=== PATIENT | male | born 1965 | race American Indian/Alaskan Native ===

== ENCOUNTER 2022-03-22 09:47 | Inpatient (IN) ==
--- NOTE | 2022-03-22 10:30 | Emergency Department Note ---
History of Present Illness General Chief complaint: Dehydration Stated complaint: REF BY DR, DEHYDRATION Time Seen by Provider: 03/22/22 10:06 History of Present Illness Provider Complaint: + nausea, + vomiting and + diarrhea Onset (ago): day(s) 4 Description of Vomiting: no bilious, no blood-streaked or no coffee grounds Description of Diarrhea: no tarry or no bloody (bright red) Associated Abdominal Pain: No Severity: moderate Maximum Pain Intensity: 7 Context: + other (history of HIV) Associated symptoms: no myalgias, no chest pain, no cough, no fever/chills, no shortness of breath, no syncope, no weakness, no fecal incontinence, no tenesmus or no anxiety Home Medications Medication Instructions Recorded Confirmed Type psyllium [Metamucil] PO DAILY 02/06/19 03/14/22 History bictegravir 50 mg-emtricitabine 1 tab PO DAILY #30 tabs 06/14/19 03/22/22 Rx 200 mg-tenofovir alafenam 25 mg tablet aspirin 81 mg chewable tablet 81 mg PO DAILY #90 tabs 07/04/19 03/22/22 Rx medical marijuana inhalation PRN Pain 09/02/21 03/14/22 History carvedilol 25 mg tablet 25 mg PO BID #180 tabs 09/14/21 03/22/22 Rx rosuvastatin 5 mg tablet 5 mg PO DAILY #90 tabs 09/14/21 03/22/22 Rx Powered Wheelchair #1 ea 12/17/21 03/14/22 Rx dicyclomine 10 mg capsule 10 mg PO TID #90 caps 12/22/21 03/22/22 Rx alirocumab 75 mg/mL subcutaneous 75 mg subcut Q14D #2 mL 03/08/22 03/22/22 Rx pen injector (Praluent Pen) cholecalciferol (vitamin D3) 50 50 mcg PO DAILY #90 caps 03/08/22 03/22/22 Rx mcg (2,000 unit) capsule icosapent ethyl 1 gram capsule 2 g PO BID #360 caps 03/08/22 03/22/22 Rx (Vascepa) sacubitril 49 mg-valsartan 51 mg 1 tab PO BID #180 tabs 03/14/22 03/22/22 Rx tablet (Entresto) Allergies Allergy/AdvReac Type Severity Reaction Status Date / Time No Known Drug Allergies Allergy Verified 03/14/22 13:03 Past Med/Surg History Medical History Behavioral and psychological symptoms of dementia Cardiac tamponade Chronic HFrEF (heart failure with reduced ejection fraction) CKD (chronic kidney disease) stage 3, GFR 30-59 ml/min Heart valve disease HIV disease Diagnosed Apr 06, 1984. 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 Surgical History History of bilateral hip replacements History of bladder surgery History of kidney surgery History of placement of ear tubes x3 History of sinus surgery x2 History of surgery "fluid drained from lungs and heart" S/P cataract surgery S/P hip replacement Family History Father Hypertension Diabetes Cancer Cardiac disorder Stroke Mother Hypertension Diabetes Cancer Cardiac disorder Myocardial infarction Lung cancer smoker Stroke Asthma Sister Hypertension Diabetes Asthma Brother Hypertension Alcoholism Grandmother (Maternal) Myocardial infarction Grandfather (Maternal) Myocardial infarction Aunt Myocardial infarction Uncle Myocardial infarction Family/Other Allergies per new patient form- "all" Heart disease per new patient form-"all" Other No family history of adverse response to anesthesia No family history of bleeding disorder Denies family history of Ovarian cancer Prostate cancer Breast cancer Colorectal cancer Social History Smoking Status: Never smoker Hx Alcohol Use: No Hx Substance Use: Yes (per ENT new patient form- denies) Preferred Language: Serbian Visual Impairment: No Limitations Hearing Ability: Use of Hearing Aid marital status: Current Living Situation: Family current occupational status: retired Feels Safe at Home: Yes Childhood Exposure to Second-Hand Smoke: Yes caffeine: Yes (Soda and tea) Dental Care, Regularly: No Physical Activity Frequency: Does not Exercise Seatbelt Use: always Do you think of yourself as: bisexual Review of Systems A total of 10 systems reviewed and were otherwise negative Physical Exam Vital Signs: Vital Signs - 24 hr 03/22/22 10:00 03/22/22 10:32 03/22/22 11:06 Temperature 36.9 C Temperature Source Temporal Artery Sc an Pulse Rate 123 H 102 H 91 H Pulse Rate [Finger ] Pulse Rate from Sp O2 Sensor 104 H Respiratory Rate 20 23 18 Respiratory Effort / Characteristics Non-Labored Sponta neous Respiratory Depth Normal Blood Pressure 89/53 L 119/81 Blood Pressure [Ri ght Arm] Blood Pressure Asha n 65 93 Blood Pressure Asha n [Right Arm] Blood Pressure Pos ition Sitting Pulse Oximetry 98 99 98 Oxygen Delivery Me thod Room Air Room Air Sepsis Recent Feve r Within 48 Hours No Sepsis New/Unexpla ined Change in Men severino Status N/A Sepsis Action Take n by Nursing Physician Notified 03/22/22 11:06 03/22/22 11:30 Temperature Temperature Source Pulse Rate Pulse Rate [Finger ] 91 H 98 H Pulse Rate from Sp O2 Sensor Respiratory Rate 18 18 Respiratory Effort / Characteristics Respiratory Depth Blood Pressure Blood Pressure [Ri ght Arm] 119/81 138/94 Blood Pressure Asha n Blood Pressure Asha n [Right Arm] 93 108 Blood Pressure Pos ition Pulse Oximetry 98 96 Oxygen Delivery Me thod Room Air Room Air Sepsis Recent Feve r Within 48 Hours Sepsis New/Unexpla ined Change in Men severino Status Sepsis Action Take n by Nursing Physical Exam: Physical Exam GENERAL: He appears well-developed and well-nourished. He does not appear distressed. HENT: Exam performed. - Head: Normocephalic and atraumatic. - Right Ear: External ear normal. No mastoid tenderness. - Left Ear: External ear normal. No mastoid tenderness. - Mouth/Throat: The oropharynx is clear and moist. No trismus in the jaw. No dental abscesses or uvula swelling. No oropharyngeal exudate or tonsillar abscesses. EYES: Conjunctivae and EOM are normal. Pupils are equal, round, and reactive to light. Right eye exhibits no discharge. Left eye exhibits no discharge. No scleral icterus. NECK: Normal range of motion. Neck supple. No JVD present. No spinous process tenderness present. No carotid bruit present. No rigidity. No tracheal deviation and normal range of motion present. No Brudzinski's sign and no Kernig's sign noted. CV: Tachycardic rate, regular rhythm, normal heart sounds and intact distal pulses. There is no peripheral edema. Palpable radial pulses bue. PULM/CHEST: Effort normal and breath sounds normal. No respiratory distress. No stridor. He has no wheezes. He has no rales. - Chest Wall: He exhibits no tenderness. ABD: The abdomen is soft. Well-healed scar over patient's anterior abdominal wall. Bowel sounds are normal. He has no distension. No mass is present. There is no tenderness. There is no rebound, no guarding, no Alvarado's sign and no tenderness at McBurney's point. Rovsig negative. MUSC/SKEL: Normal range of motion. There is no peripheral edema, tenderness or deformity. LYMPH: No cervical adenopathy. NEURO: He has normal strength. No cranial nerve deficit or sensory deficit. Coordination and gait normal. GCS eye subscore is 4. GCS verbal subscore is 5. GCS motor subscore is 6. Cerebellar tests wnl. Course Course 100: The patient was evaluated in room C8. A complete history and physical exam was performed Cardiac monitoring: An order was placed for continuous cardiac monitoring. The monitor shows a rate of 110 with sinus tachycardia rhythm EMR reviewed. Echocardiogram from August 2021 shows ejection fraction of 50 to 55% mild concentric left ventricular hypertrophy no significant change from the echo done in September 2019. Patient has history of HIV. Patient's viral load was detectable in November 2021 however on March 14, 2022 the patient had an undetectable viral load. The patient's last CD4 count in November 2021 showed a CD4 count of 770. 1135: Vital signs improved with IV fluid administration. Labs show white blood cell count of 10.6. Patient's creatinine is 2.47. Patient does have a history of CKD. Patient's initial lactic acid 2.6. Procalcitonin elevated at 3.56. Urinalysis does appear infected. Stool cultures are still pending. Patient does states he has a history of multiple urinary tract infections and states that Cipro and Bactrim no longer help his urinary tract infections. Patient will be treated with Rocephin 1 g IV piggyback in the emergency department. Giv en the patient's history of HIV infection, multiple UTIs, lactic acidemia, and elevated procalcitonin level, the patient will be admitted to the [facility]ist team Dr. Yeboah will be notified. Administered Medications Discontinued Medications Sodium Chloride (Nss 1000ml) 1,000 mls @ 999 mls/hr IV .Q1H1M IGNACIO Stop: 03/22/22 12:15 Last Infusion: 10/25/22 12:40 Dose: 0 mls/hr Documented By: Admin: 03/22/22 11:47 Dose: 999 mls/hr Documented By: Infusion: 03/22/22 11:47 Dose: 999 mls/hr Documented By: Admin: 03/22/22 11:14 Dose: 999 mls/hr Documented By: QGV Sodium Chloride (Nss 1000ml) 500 mls @ 999 mls/hr IV .Q31M ONE Stop: 03/22/22 11:53 Last Admin: 03/22/22 12:40 Dose: 999 mls/hr Documented By: QGV Ceftriaxone Sodium (Rocephin) 1,000 mg in 50 mls @ 100 mls/hr IV NOW STA Stop: 03/22/22 12:02 Last Infusion: 03/22/22 12:40 Dose: 0 mls/hr Documented By: Admin: 03/22/22 11:57 Dose: 100 mls/hr Documented By: QGV Medical Decision Making Laboratory Data Result diagrams: 03/22/22 10:24 03/22/22 10:24 Lab Results 03/22/22 03/22/22 03/22/22 Range/Units 10:24 10:24 10:24 WBC 10.60 (4.8-10.8) K/ul RBC 5.07 (4.63-6.08) M/uL Hgb 17.4 (14.0-18.0) g/dl Hct 48.5 (40.1-51.0) % MCV 95.7 (80.0-100.0) fL MCH 34.3 H (25.0-34.0) pg MCHC 35.9 (32.0-36.0) g/dL RDW Std Deviation 49.1 H (36.4-46.3) fL RDW Coeff of Melba 14.2 (11.5-14.5) % Plt Count 216 (130-400) K/uL MPV 8.5 L (9.4-12.4) fL Immature Gran % (Auto) 0.8 % Neut % (Auto) 73.6 % Lymph % (Auto) 10.4 % [place] % (Auto) 12.7 % Eos % (Auto) 2.0 % Baso % (Auto) 0.5 % Neut # (Auto) 7.81 H (1.4-6.5) K/uL Lymph # (Auto) 1.10 L (1.2-3.4) K/uL [place] # (Auto) 1.35 H (0.24-0.82) K/uL Eos # (Auto) 0.21 (0-0.50) K/uL Baso # (Auto) 0.05 (0-0.2) K/uL Immature Gran # (Auto) 0.08 H (0.00-0.02) K/uL PT 10.5 (9.0-12.0) Seconds INR 1.0 (0.9-1.1) APTT 28.8 (21.0-31.0) Seconds PTT Ratio 1.0 Sodium 137 (136-145) mmol/L Potassium 3.7 (3.5-5.1) mmol/L Chloride 107 (98-107) mmol/L Carbon Dioxide 19 L (21-32) mmol/L Anion Gap 11 (3-11) BUN 23 (6-23) mg/dl Creatinine 2.47 H (0.6-1.4) mg/dl Est Cr Clr Drug Dosing 35.3 ml/min Est GFR ( Amer) 33.0 ml/min Est GFR (Non-Af Amer) 28.5 ml/min BUN/Creatinine Ratio 9.3 L (10-20) Glucose 129 H (70-99(Fasting)) mg/dl Lactate (0.4-2.0) mmol/L Calcium 9.6 (8.5-10.1) mg/dl Magnesium 1.9 (1.7-2.4) mg/dl Total Bilirubin 0.9 (0.2-1.0) mg/dl Direct Bilirubin 0.1 (0-0.2) mg/dl AST 21 (13-39) U/L ALT 33 (7-52) U/L Alkaline Phosphatase 146 H (34-104) U/L Troponin I High Sens 9.0 (0-20) pg/ml Total Protein 9.0 H (6.0-8.3) gm/dl Albumin 4.7 (3.4-5.0) gm/dl Lipase 27 (11-82) U/L Procalcitonin (0-0.5) ng/ml Urine Color Urine Appearance (Clear) Urine pH (4.5-7.5) Ur Specific [place] (1.000-1.030) Urine Protein (Negative) Urine Glucose (UA) (Negative) Urine Ketones (Negative) Urine Blood (Negative) Urine Nitrite (Negative) Urine Bilirubin (Negative) Urine Urobilinogen (Negative) Ur Leukocyte Esterase (Negative) Urine WBC (Auto) (0-5) /hpf Urine RBC (Auto) (0-4) /hpf U Hyaline Cast (Auto) (0-5) /lpf U Epithel Cells (Auto) (0-5) /lpf Urine Bacteria (Auto) (Negative) SARS-CoV-2 (PCR) (Negative) Influenza Type A (PCR) (Neg) Influenza Type B (PCR) (Neg) RSV (RT-PCR) (Neg) 03/22/22 03/22/22 03/22/22 Range/Units 10:24 10:29 10:42 WBC (4.8-10.8) K/ul RBC (4.63-6.08) M/uL Hgb (14.0-18.0) g/dl Hct (40.1-51.0) % MCV (80.0-100.0) fL MCH (25.0-34.0) pg MCHC (32.0-36.0) g/dL RDW Std Deviation (36.4-46.3) fL RDW Coeff of Melba (11.5-14.5) % Plt Count (130-400) K/uL MPV (9.4-12.4) fL Immature Gran % (Auto) % Neut % (Auto) % Lymph % (Auto) % [place] % (Auto) % Eos % (Auto) % Baso % (Auto) % Neut # (Auto) (1.4-6.5) K/uL Lymph # (Auto) (1.2-3.4) K/uL [place] # (Auto) (0.24-0.82) K/uL Eos # (Auto) (0-0.50) K/uL Baso # (Auto) (0-0.2) K/uL Immature Gran # (Auto) (0.00-0.02) K/uL PT (9.0-12.0) Seconds INR (0.9-1.1) APTT (21.0-31.0) Seconds PTT Ratio Sodium (136-145) mmol/L Potassium (3.5-5.1) mmol/L Chloride (98-107) mmol/L Carbon Dioxide (21-32) mmol/L Anion Gap (3-11) BUN (6-23) mg/dl Creatinine (0.6-1.4) mg/dl Est Cr Clr Drug Dosing ml/min Est GFR ( Amer) ml/min Est GFR (Non-Af Amer) ml/min BUN/Creatinine Ratio (10-20) Glucose (70-99(Fasting)) mg/dl Lactate 2.6 H* (0.4-2.0) mmol/L Calcium (8.5-10.1) mg/dl Magnesium (1.7-2.4) mg/dl Total Bilirubin (0.2-1.0) mg/dl Direct Bilirubin (0-0.2) mg/dl AST (13-39) U/L ALT (7-52) U/L Alkaline Phosphatase (34-104) U/L Troponin I High Sens (0-20) pg/ml Total Protein (6.0-8.3) gm/dl Albumin (3.4-5.0) gm/dl Lipase (11-82) U/L Procalcitonin 3.56 H (0-0.5) ng/ml Urine Color Urine Appearance (Clear) Urine pH (4.5-7.5) Ur Specific [place] (1.000-1.030) Urine Protein (Negative) Urine Glucose (UA) (Negative) Urine Ketones (Negative) Urine Blood (Negative) Urine Nitrite (Negative) Urine Bilirubin (Negative) Urine Urobilinogen (Negative) Ur Leukocyte Esterase (Negative) Urine WBC (Auto) (0-5) /hpf Urine RBC (Auto) (0-4) /hpf U Hyaline Cast (Auto) (0-5) /lpf U Epithel Cells (Auto) (0-5) /lpf Urine Bacteria (Auto) (Negative) SARS-CoV-2 (PCR) NEGATIVE (Negative) Influenza Type A (PCR) Negative (Neg) Influenza Type B (PCR) Negative (Neg) RSV (RT-PCR) Negative (Neg) 03/22/22 Range/Units 10:47 WBC (4.8-10.8) K/ul RBC (4.63-6.08) M/uL Hgb (14.0-18.0) g/dl Hct (40.1-51.0) % MCV (80.0-100.0) fL MCH (25.0-34.0) pg MCHC (32.0-36.0) g/dL RDW Std Deviation (36.4-46.3) fL RDW Coeff of Melba (11.5-14.5) % Plt Count (130-400) K/uL MPV (9.4-12.4) fL Immature Gran % (Auto) % Neut % (Auto) % Lymph % (Auto) % [place] % (Auto) % Eos % (Auto) % Baso % (Auto) % Neut # (Auto) (1.4-6.5) K/uL Lymph # (Auto) (1.2-3.4) K/uL [place] # (Auto) (0.24-0.82) K/uL Eos # (Auto) (0-0.50) K/uL Baso # (Auto) (0-0.2) K/uL Immature Gran # (Auto) (0.00-0.02) K/uL PT (9.0-12.0) Seconds INR (0.9-1.1) APTT (21.0-31.0) Seconds PTT Ratio Sodium (136-145) mmol/L Potassium (3.5-5.1) mmol/L Chloride (98-107) mmol/L Carbon Dioxide (21-32) mmol/L Anion Gap (3-11) BUN (6-23) mg/dl Creatinine (0.6-1.4) mg/dl Est Cr Clr Drug Dosing ml/min Est GFR ( Amer) ml/min Est GFR (Non-Af Amer) ml/min BUN/Creatinine Ratio (10-20) Glucose (70-99(Fasting)) mg/dl Lactate (0.4-2.0) mmol/L Calcium (8.5-10.1) mg/dl Magnesium (1.7-2.4) mg/dl Total Bilirubin (0.2-1.0) mg/dl Direct Bilirubin (0-0.2) mg/dl AST (13-39) U/L ALT (7-52) U/L Alkaline Phosphatase (34-104) U/L Troponin I High Sens (0-20) pg/ml Total Protein (6.0-8.3) gm/dl Albumin (3.4-5.0) gm/dl Lipase (11-82) U/L Procalcitonin (0-0.5) ng/ml Urine Color Yellow Urine Appearance Turbid A (Clear) Urine pH 6.5 (4.5-7.5) Ur Specific [place] 1.016 (1.000-1.030) Urine Protein 3+ H (Negative) Urine Glucose (UA) Negative (Negative) Urine Ketones Negative (Negative) Urine Blood 3+ H (Negative) Urine Nitrite Positive A (Negative) Urine Bilirubin Negative (Negative) Urine Urobilinogen Negative (Negative) Ur Leukocyte Esterase 2+ H (Negative) Urine WBC (Auto) >30 H (0-5) /hpf Urine RBC (Auto) 0-4 (0-4) /hpf U Hyaline Cast (Auto) 0 (0-5) /lpf U Epithel Cells (Auto) >30 H (0-5) /lpf Urine Bacteria (Auto) 4+ H (Negative) SARS-CoV-2 (PCR) (Negative) Influenza Type A (PCR) (Neg) Influenza Type B (PCR) (Neg) RSV (RT-PCR) (Neg) Imaging Data Radiologist's Impression: Chest X-Ray 03/22/22 10:06 XR chest 1V portable CLINICAL HISTORY: Sepsis. COMPARISON STUDY: No previous studies for comparison. FINDINGS: Lung volumes are normal. There is a 1.2 cm nodular density lateral to the left hilum. There is no pneumothorax or pleural effusion. Cardiac size is normal. Mediastinal contours are normal. There is no evidence for pulmonary edema. IMPRESSION: 1.2 cm nodular density lateral to left hilum. This likely represents a pulmonary vessel. However, a nonemergent chest CT is recommended to exclude a pulmonary nodule. ACT 112: Negative or not required by law. Electronically signed by: Joshua Fu M.D. 03/22/2022 10:41 AM ECG Data Indication: nausea Rate (beats per minute): 105 Rhythm: sinus tachycardia Findings: no ST depression, no ST elevation or no prolonged QT MDM Narrative 1006: The patient was evaluated in room C8. A complete history and physical exam was performed Cardiac monitoring: An order was placed for continuous cardiac monitoring. The monitor shows a rate of 110 with sinus tachycardia rhythm EMR reviewed. Echocardiogram from August 2021 shows ejection fraction of 50 to 55% mild concentric left ventricular hypertrophy no significant change from the echo done in September 2019. Patient has history of HIV. Patient's viral load was detectable in November 2021 however on March 14, 2022 the patient had an undetectable viral load. The patient's last CD4 count in November 2021 showed a CD4 count of 770. 1135: Vital signs improved with IV fluid administration. Labs show white blood cell count of 10.6. Patient's creatinine is 2.47. Patient does have a history of CKD. Patient's initial lactic acid 2.6. Procalcitonin elevated at 3.56. Urinalysis does appear infected. Stool cultures are still pending. Patient does states he has a history of multiple urinary tract infections and states that Cipro and Bactrim no longer help his urinary tract infections. Patient will be treated with Rocephin 1 g IV piggyback in the emergency department. Given the patient's history of HIV infection, multiple UTIs, lactic acidemia, and elevated procalcitonin level, the patient will be admitted to the [facility] hospitalist team Dr. Yeboah will be notified. Impression & Plan Sepsis, Acute UTI Discharge Plan Visit Data Chief Complaint: Dehydration Stated Complaint: REF BY , DEHYDRATION ED Provider: Tino Joiner Discharge Problem: Sepsis, Acute UTI Patient Disposition: Admitted As Inpatient Forms Stand Alone Forms: My [facility] Prescriptions Prescriptions: No Action kyauoevpo-ebpnsiqo-kiayqep ala 50-200-25 mg tablet 1 tab PO DAILY Qty: 30 5RF aspirin 81 mg tablet,chewable 81 mg PO DAILY Qty: 90 3RF carvedilol 25 mg tablet 25 mg PO BID Qty: 180 3RF Rx Instructions: must administer with a meal/food rosuvastatin 5 mg tablet 5 mg PO DAILY Qty: 90 3RF dicyclomine 10 mg capsule 10 mg PO TID Qty: 90 2RF Praluent Pen 75 mg/mL pen injector 75 mg SQ Q14D Qty: 2 11RF Rx Instructions: inject into abdomen, thigh, or upper arm (deltoid muscle); rotate sites icosapent ethyl [Vascepa] 1 gram capsule 2 g PO BID Qty: 360 3RF Entresto 49-51 mg tablet 1 tab PO BID Qty: 180 3RF cholecalciferol (vitamin D3) 50 mcg (2,000 unit) capsule 50 mcg PO DAILY Qty: 90 3RF medical marijuana inhalation PRN (Reason: Pain) (DME) Powered Wheelchair Misc See Rx Instructions .Route Qty: 1 0RF Rx Instructions: As directed psyllium PO DAILY Referrals Referrals: Ruth Butler MD [Primary Care Provider] - : Sepsis Qualifiers: Sepsis type: sepsis due to unspecified organism Sepsis acute organ dysfunction status: unspecified Qualified Code(s): A41.9 - Sepsis, unspecified organism
--- NOTE | 2022-03-22 10:42 | XRay Report ---
XR chest 1V portable CLINICAL HISTORY: Sepsis. COMPARISON STUDY: No previous studies for comparison. FINDINGS: Lung volumes are normal. There is a 1.2 cm nodular density lateral to the left hilum. There is no pneumothorax or pleural effusion. Cardiac size is normal. Mediastinal contours are normal. The re is no evidence for pulmonary edema. IMPRESSION: 1.2 cm nodular density lateral to left hilum. This likely represents a pulmonary vessel. However, a nonemergent chest CT is recommended to exclude a pulmonary nodule. ACT 112: Negative or not required by law. Electronically signed by: Joshua Fu M.D. 03/22/2022 10:41 AM
[2022-03-22 10:45] LABS: Basophils # (auto) 0.05 K/uL (0-0.2); Basophils % (auto) 0.5 %; Eosinophils # (auto) 0.21 K/uL (0-0.50); Hematocrit (blood only) 48.5 % (40.1-51.0); Hemoglobin 17.4 g/dl (14.0-18.0); Immature Granulocytes # (auto) 0.08 K/uL (0.00-0.02); Immature Granulocytes % (auto) 0.8 %; Lymphocytes % (auto) 10.4 %; Mean Corpuscular Hemoglobin 34.3 pg (25.0-34.0); Mean Corpuscular Hgb Conc 35.9 g/dL (32.0-36.0); Mean Corpuscular Volume 95.7 fL (80.0-100.0); Mean Platelet Volume 8.5 fL (9.4-12.4); Monocytes # (auto) 1.35 K/uL (0.24-0.82); Monocytes % (auto) 12.7 %; Neutrophils # (auto) 7.81 K/uL (1.4-6.5); Neutrophils % (auto) 73.6 %; Platelet Count 216 K/uL (130-400); RDW Coefficient of Variation 14.2 % (11.5-14.5); RDW Standard Deviation 49.1 fL (36.4-46.3); Red Blood Count 5.07 M/uL (4.63-6.08)
[2022-03-22 10:59] LABS: Partial Thromboplastin Time 28.8 Seconds (21.0-31.0); Prothrombin Time 10.5 Seconds (9.0-12.0)
[2022-03-22 11:12] LABS: Appearance Urine Turbid (Clear); Bacteria Urine Automated 4+ (Negative); Bilirubin Urine Negative (Negative); Blood Urine 3+ (Negative); Color Urine Yellow; Epithelial Cell Urine Auto >30 /lpf (0-5); Glucose Urine UA Negative (Negative); Ketones Urine Negative (Negative); Leukocyte Esterase Urine 2+ (Negative); Nitrite Urine Positive (Negative); Protein Urine 3+ (Negative); RBC Urine Automated 0-4 /hpf (0-4); Specific Gravity Urine 1.016 (1.000-1.030); Urobilinogen Urine Negative (Negative); WBC Urine Automated >30 /hpf (0-5); pH Urine 6.5 (4.5-7.5)
[2022-03-22 11:14] LABS: Albumin Level 4.7 gm/dl (3.4-5.0); BUN Creatinine Ratio 9.3 (10-20); Bilirubin Direct 0.1 mg/dl (0-0.2); Bilirubin,Total 0.9 mg/dl (0.2-1.0); Calcium 9.6 mg/dl (8.5-10.1); Creatinine Clr Calc Pharmacy 35.3 ml/min; Est GFR (Non-African American) 28.5 ml/min; Magnesium 1.9 mg/dl (1.7-2.4); Potassium 3.7 mmol/L (3.5-5.1)
[2022-03-22] MEDS: SODIUM CHLORIDE 0.9% 1000ML 1,000 ML IV SCH ×2 (11:14→11:47)
[2022-03-22 11:23] LABS: Cast Urine Automated 0 /lpf (0-5)
[2022-03-22] MEDS ORDERED: SODIUM CHLORIDE 0.9% 1000ML 500 ML IV ONE (11:23)
[2022-03-22] MEDS ORDERED: cefTRIAXone SODIUM 1,000 MG/50 ML BAG IV STA (11:33)
[2022-03-22 11:58] LABS: Influenza A virus by PCR Negative (Neg); Influenza B virus by PCR Negative (Neg); RSV by PCR Negative (Neg); SARS CoV2 RNA(COVID-19) InHosp NEGATIVE (Negative)
--- NOTE | 2022-03-22 12:04 | History & Physical Report ---
Date of Service March 22, 2022 Assessment & Plan (1) Nausea and vomiting: Plan: Patient presented with nausea vomiting inability to keep down medications. On intake he does have elevation of lactic acid and procalcitonin. He has an abnormal urinalysis with a history of urinary tract infections stool studies are pending. An infectious disease note from 2020 lists chronic diarrhea is one of his medical problems. In ER he was given antiemetics hydration antibiotics and ceftriaxone and cultures were obtained in the past as urinary infections including Klebsiella and E. coli which were fairly sensitive to antibiotics given the fact that he self caths through his neobladder he likely is at risk for a catheterization associated urinary tract infection Patient will be volume resuscitated and continue on ceftriaxone (2) HIV disease: Plan: Patient typically sees Dr. Velez for his HIV. 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 Velez (3) CKD (chronic kidney disease) stage 3, GFR 30-59 ml/min: Plan: Acute kidney injury with history of chronic kidney disease. Likely from prerenal ATN patient typically follows with Dr. Chavis his creatinine typically is around 2 we will do a ultrasound to determine if there is any hydronephrosis or changes to the structure of his kidneys, he currently has a mild acidosis however this could be from dehydration and lactic acidosis his anion gap is low though at 11 (4) Chronic HFrEF (heart failure with reduced ejection fraction): Plan: Has a history of cardiomyopathy most recent echocardiogram showed preserved ejection fraction patient is on carvedilol, Entresto rosuvastatin Additionally for his cholesterol and he is on alirocumab(Praluent) and icosapent (Vascepa) (5) Neurogenic bladder: Plan: Reportedly had a neobladder per notes from Dr. Landry in 2016, patient self straight caths 4 times a day and as needed Plan DVT prevention is heparin given his renal function he is a full code History of Present Illness Primary Care Provider: Ruth Butler MD 56-year-old male with a history of HIV on chronic therapy with recently intact CD4 counts who presents with 4 days prehospital nausea vomiting and diarrhea. No significant description of melena or hematochezia or coffee-ground emesis. Does have a history of chronic diarrhea in the past. Remains on Bentyl and Metamucil as offered by Dr. Vaz he denies ill contacts Emergency department he has evidence of endorgan distress with acute kidney injury elevated lactic acid elevated procalcitonin abnormal urine analysis pending stool evaluation. He was given volume resuscitation cautiously with his history of cardiomyopathy of the last ejection fraction showed preserved EF Allergies Allergy/AdvReac Type Severity Reaction Status Date / Time No Known Drug Allergies Allergy Verified 03/14/22 13:03 Home Medications Medication Instructions Recorded Confirmed Type psyllium [Metamucil] PO DAILY 02/06/19 03/14/22 History bictegravir 50 mg-emtricitabine 1 tab PO DAILY #30 tabs 06/14/19 03/22/22 Rx 200 mg-tenofovir alafenam 25 mg tablet aspirin 81 mg chewable tablet 81 mg PO DAILY #90 tabs 07/04/19 03/22/22 Rx medical marijuana inhalation PRN Pain 09/02/21 03/14/22 History carvedilol 25 mg tablet 25 mg PO BID #180 tabs 09/14/21 03/22/22 Rx rosuvastatin 5 mg tablet 5 mg PO DAILY #90 tabs 09/14/21 03/22/22 Rx Powered Wheelchair #1 ea 12/17/21 03/14/22 Rx dicyclomine 10 mg capsule 10 mg PO TID #90 caps 12/22/21 03/22/22 Rx alirocumab 75 mg/mL subcutaneous 75 mg subcut Q14D #2 mL 03/08/22 03/22/22 Rx pen injector (Praluent Pen) cholecalciferol (vitamin D3) 50 50 mcg PO DAILY #90 caps 03/08/22 03/22/22 Rx mcg (2,000 unit) capsule icosapent ethyl 1 gram capsule 2 g PO BID #360 caps 03/08/22 03/22/22 Rx (Vascepa) sacubitril 49 mg-valsartan 51 mg 1 tab PO BID #180 tabs 03/14/22 03/22/22 Rx tablet (Entresto) Past Med/Surg History Medical History Behavioral and psychological symptoms of dementia Cardiac tamponade Chronic HFrEF (heart failure with reduced ejection fraction) CKD (chronic kidney disease) stage 3, GFR 30-59 ml/min Heart valve disease HIV disease Diagnosed Apr 06, 1984. 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 Surgical History History of bilateral hip replacements History of bladder surgery History of kidney surgery History of placement of ear tubes x3 History of sinus surgery x2 History of surgery "fluid drained from lungs and heart" S/P cataract surgery S/P hip replacement Family History Father Hypertension Diabetes Cancer Cardiac disorder Stroke Mother Hypertension Diabetes Cancer Cardiac disorder Myocardial infarction Lung cancer smoker Stroke Asthma Sister Hypertension Diabetes Asthma Brother Hypertension Alcoholism Grandmother (Maternal) Myocardial infarction Grandfather (Maternal) Myocardial infarction Aunt Myocardial infarction Uncle Myocardial infarction Family/Other Allergies per new patient form- "all" Heart disease per new patient form-"all" Other No family history of adverse response to anesthesia No family history of bleeding disorder Denies family history of Ovarian cancer Prostate cancer Breast cancer Colorectal cancer Social History Smoking Status: Never smoker Hx Alcohol Use: No Hx Substance Use: Yes (per ENT new patient form- denies) Preferred Language: Kyrgyz Visual Impairment: No Limitations Hearing Ability: Use of Hearing Aid marital status: Current Living Situation: Family current occupational status: retired Feels Safe at Home: Yes Childhood Exposure to Second-Hand Smoke: Yes caffeine: Yes (Soda and tea) Dental Care, Regularly: No Physical Activity Frequency: Does not Exercise Seatbelt Use: always Do you think of yourself as: bisexual Review of Systems Review of Systems: Mild distress and fatigue no headache, no visual changes no speech or swallowing issues no chest pain, pressure or palpitations no shortness of breath, cough or wheezes no abdominal pain, presented with persistent nausea vomiting and diarrhea Is a neobladder typically self straight caths through his umbilicus has noticed no changes in his urine no focal joint pain or swelling no back pain, CVA tenderness or radicular pain no bruising, bleeding or rashes no focal signs of weakness or numbness or altered sensation no complaints of anxiety or depression.. Physical Exam Physical Exam: The patient appeared well nourished and normally developed. Vital signs as documented. Head exam is normocephalic atraumatic Neck is without JVD, thyromegaly, or carotid bruits. Lungs are clear to auscultation, no focal loss of breath sounds Cardiac exam, Rhythm is regular.. No murmurs, rubs or gallops. Abdominal exam reveals normal bowel sounds, soft non tender, no masses slightly distended and firm to touch Extremities are nonedematous and both pedal pulses are present Neurologic exam is alert and oriented, no focal loss of strength or sensation Skin is without bruises or rashes Psychologically is without concerns for anxiety or depression.. Results & Data Results & Data ([facility]) Vital Signs (Past 12 Hours) Vital Signs Temp Pulse Pulse Resp BP BP Pulse Ox 03/22/22 11:06 91 H 18 119/81 98 03/22/22 11:06 91 H 18 98 03/22/22 10:32 102 H 23 119/81 99 03/22/22 10:00 98.4 F 123 H 20 89/53 L 98 O2 Del Method 03/22/22 11:06 Room Air 03/22/22 11:06 Room Air 03/22/22 10:32 03/22/22 10:00 Room Air PG Care Time/CCT Total # of Minutes Spent Total Time Spent with Patient: Total time spent is greater than 50% in coordination of care (as documented) at patient's floor/unit and/or counseling patient: Coding Level of Care Code 37416 Initial Inpt Care Lvl 3 Diagnoses Nausea and vomiting R11.2 HIV disease B20 CKD (chronic kidney disease) stage 3, GFR 30-59 ml/min N18.30 Chronic HFrEF (heart failure with reduced ejection fraction) I50.22 Neurogenic bladder N31.9
[2022-03-22 13:06] LABS: Adenovirus F 40/41 PCR Not Detected (NotDetected); Astrovirus PCR Not Detected (NotDetected); Campylobacter PCR Not Detected (NotDetected); Clostridium diff Toxin A/B PCR Not Detected (NotDetected); Cryptosporidium PCR Not Detected (NotDetected); Cyclospora cayetanensis PCR Not Detected (NotDetected); Entamoeba histolytica PCR Not Detected (NotDetected); Enteroaggregative E.coli(EAEC) Not Detected (NotDetected); Enteropathogenic E.coli (EPEC) Not Detected (NotDetected); Enterotoxigenic E.coli (ETEC) Not Detected (NotDetected); Giardia lamblia PCR Not Detected (NotDetected); Norovirus GI/GII PCR DETECTED (NotDetected); Plesiomonas shigelloides PCR Not Detected (NotDetected); Rotavirus A PCR Not Detected (NotDetected); Salmonella PCR Not Detected (NotDetected); Shiga-like Toxin E.coli (STEC) Not Detected (NotDetected); Shigella/Enteroinvasive E.coli Not Detected (NotDetected); Vibrio cholerae PCR Not Detected (NotDetected); Vibrio species PCR Not Detected (NotDetected); Yersinia enterocolitica PCR Not Detected (NotDetected)
[2022-03-22 13:34] LABS: Sapovirus PCR Not Detected (NotDetected)
[2022-03-22] MEDS ORDERED: PROMETHAZINE HCL 12.5 MG in SODIUM CHLORIDE 0.9% 50 ML IV PRN (14:50)
[2022-03-22] MEDS ORDERED: NSS + 20MEQ KCL 20 MEQ/1,000 ML BAG IV SCH (14:50)
[2022-03-22] MEDS ORDERED: ALUMINUM/MAGNESIUM SUSP 30 ML UDC PO PRN (14:50)
[2022-03-22] MEDS: ONDANSETRON INJ 2 MG/ML 2 ML VIAL IV PRN ×2 (15:25→21:43)
[2022-03-22] MEDS: DICYCLOMINE HCL 10 MG CAP PO SCH ×2 (15:25→21:34)
--- NOTE | 2022-03-22 16:47 | Nephrology Consultation ---
Date of Consultation March 22, 2022 Assessment & Plan (1) Acute kidney injury: * LIT due to dehydration in the setting of ARB therapy * Continue 0.9 NS at 100 cc/hr * Monitor PRP * Hold Entresto only if kidney function fails to improve w/ hydration * Await renal US results (2) Chronic kidney disease with active medical management without dialysis, stage 3 (moderate): * CKD stage G3b/A3 (moderate impairment). Baseline Cr 1.8 w/ EGFR 40 cc/min. 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 UPCR ~ 0.9. 09/17 renal US revealed mild asymmetry suggestive of microvascular disease (3) HIV disease: * On antiviral therapy as per Dr. Velez. 03/19 HIV RNA PCR - negative (4) Neurogenic bladder: * Performs CIC * Await urine culture results (5) Norovirus: * Stool PCR + for norovirus * Continue supportive care History of Present Illness Reason for Consultation: LIT/CKD Attending Physician: Jose Simon MD History of Present Illness Mr. Adame is a 56 year old male who is seen at the request of Dr. Simon for evaluation of LIT/CKD. Medical records in the EMR were reviewed today and are summarized as follows: Mr. Adame moved to [facility] 01/16. His daughter is a biostatistics professor at [employer]. Mr. Adame has a complex medical history including HIV > 30 years (currently on Biktarvy, viral load undetectable. ID specialist Dr. Mariajose Velez), ASCVD, ICM, hypertriglyceridemia, chronic diarrhea, neurogenic bladder s/p creation or urostomy (ileal conduit), kidney stones, dementia, and SNHL.Mr. Adame has CKD stage G3b/A3 (moderate impairment). His baseline Cr has been 1.8 w/ EGFR 40 cc/min. Urine sediment has been difficult to interpret due to ileal conduit. UPCR has been ~ 0.9. 09/17 renal US revealed mild asymmetry suggestive of microvascular disease. Mr. Adame presented to [facility] EMD today w/ 4 day history of N/V/D. He denies melena or hematochezia. SBP 89 mm Hg, Cr 2.47, lactate 2.6, procalcitonin 3.56. He has been admitted to the hospitalist service for volume resuscitation and empiric antibiotic therapy Allergies Allergy/AdvReac Type Severity Reaction Status Date / Time No Known Drug Allergies Allergy Verified 03/14/22 13:03 Home Medications Medication Instructions Recorded Confirmed Type psyllium [Metamucil] PO DAILY 02/06/19 03/14/22 History bictegravir 50 mg-emtricitabine 1 tab PO DAILY #30 tabs 06/14/19 03/22/22 Rx 200 mg-tenofovir alafenam 25 mg tablet aspirin 81 mg chewable tablet 81 mg PO DAILY #90 tabs 07/04/19 03/22/22 Rx medical marijuana inhalation PRN Pain 09/02/21 03/14/22 History carvedilol 25 mg tablet 25 mg PO BID #180 tabs 09/14/21 03/22/22 Rx rosuvastatin 5 mg tablet 5 mg PO DAILY #90 tabs 09/14/21 03/22/22 Rx Powered Wheelchair #1 ea 12/17/21 03/14/22 Rx dicyclomine 10 mg capsule 10 mg PO TID #90 caps 12/22/21 03/22/22 Rx alirocumab 75 mg/mL subcutaneous 75 mg subcut Q14D #2 mL 03/08/22 03/22/22 Rx pen injector (Praluent Pen) cholecalciferol (vitamin D3) 50 50 mcg PO DAILY #90 caps 03/08/22 03/22/22 Rx mcg (2,000 unit) capsule icosapent ethyl 1 gram capsule 2 g PO BID #360 caps 03/08/22 03/22/22 Rx (Vascepa) sacubitril 49 mg-valsartan 51 mg 1 tab PO BID #180 tabs 03/14/22 03/22/22 Rx tablet (Entresto) Patient History Medical History (Updated 03/22/22 @ 16:40 by Grant Chavis MD) Behavioral and psychological symptoms of dementia Cardiac tamponade Chronic HFrEF (heart failure with reduced ejection fraction) Heart valve disease HIV disease Diagnosed Apr 06, 1984. 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 Surgical History History of bilateral hip replacements History of bladder surgery History of kidney surgery History of placement of ear tubes x3 History of sinus surgery x2 History of surgery "fluid drained from lungs and heart" S/P cataract surgery S/P hip replacement Family History Father Hypertension Diabetes Cancer Cardiac disorder Stroke Mother Hypertension Diabetes Cancer Cardiac disorder Myocardial infarction Lung cancer smoker Stroke Asthma Sister Hypertension Diabetes Asthma Brother Hypertension Alcoholism Grandmother (Maternal) Myocardial infarction Grandfather (Maternal) Myocardial infarction Aunt Myocardial infarction Uncle Myocardial infarction Family/Other Allergies per new patient form- "all" Heart disease per new patient form-"all" Other No family history of adverse response to anesthesia No family history of bleeding disorder Denies family history of Ovarian cancer Prostate cancer Breast cancer Colorectal cancer Social History Smoking Status: Never smoker Hx Alcohol Use: No Hx Substance Use: Yes (per ENT new patient form- denies) Preferred Language: Japanese Visual Impairment: No Limitations Hearing Ability: Use of Hearing Aid marital status: Current Living Situation: Family current occupational status: retired Feels Safe at Home: Yes Childhood Exposure to Second-Hand Smoke: Yes caffeine: Yes (Soda and tea) Dental Care, Regularly: No Physical Activity Frequency: Does not Exercise Seatbelt Use: always Do you think of yourself as: bisexual Review of Systems Constitutional: no fever Eyes: no problem reported Ear, Nose, Mouth, Throat: no problem reported Respiratory: no cough and no dyspnea Cardiovascular: no chest pain Gastrointestinal: + nausea, + vomiting and + diarrhea/loose stools; no abdominal pain Physical Exam Constitutional: + ill appearing; not in distress Eyes: PERRL, conjunctivae normal, anicteric sclerae ENMT: external ear and nose normal, oropharynx normal Neck: trachea midline, no thyromegaly Respiratory: normal respiratory effort, lungs clear to auscultation Cardiovascular: RRR, no murmur, no edema Gastrointestinal (Abdomen): normal bowel sounds, soft, nontender, no hepatosplenomegaly Skin: no rashes, warm and dry Neurologic: awake; not confused Results & Data ([facility]) Vital Signs (Past 12 Hours) Vital Signs Temp Pulse Pulse Resp BP BP Pulse Ox 03/22/22 14:33 93 H 20 130/91 97 03/22/22 11:30 98 H 18 138/94 96 03/22/22 11:06 91 H 18 119/81 98 03/22/22 11:06 91 H 18 98 03/22/22 10:32 102 H 23 119/81 99 03/22/22 10:00 36.9 C 123 H 20 89/53 L 98 O2 Del Method 03/22/22 14:33 Room Air 03/22/22 11:30 Room Air 03/22/22 11:06 Room Air 03/22/22 11:06 Room Air 03/22/22 10:32 03/22/22 10:00 Room Air Laboratory Results Laboratory Results WBC 10.60 K/ul (4.8-10.8) 03/22/22 10:24 RBC 5.07 M/uL (4.63-6.08) 03/22/22 10:24 Hgb 17.4 g/dl (14.0-18.0) 03/22/22 10:24 Hct 48.5 % (40.1-51.0) 03/22/22 10:24 MCV 95.7 fL (80.0-100.0) 03/22/22 10:24 MCH 34.3 pg (25.0-34.0) H 03/22/22 10:24 MCHC 35.9 g/dL (32.0-36.0) 03/22/22 10:24 RDW Std Deviation 49.1 fL (36.4-46.3) H 03/22/22 10:24 RDW Coeff of Melba 14.2 % (11.5-14.5) 03/22/22 10:24 Plt Count 216 K/uL (130-400) 03/22/22 10:24 MPV 8.5 fL (9.4-12.4) L 03/22/22 10:24 Immature Gran % (Auto) 0.8 % 03/22/22 10:24 Neut % (Auto) 73.6 % 03/22/22 10:24 Lymph % (Auto) 10.4 % 03/22/22 10:24 Hand % (Auto) 12.7 % 03/22/22 10:24 Eos % (Auto) 2.0 % 03/22/22 10:24 Baso % (Auto) 0.5 % 03/22/22 10:24 Neut # (Auto) 7.81 K/uL (1.4-6.5) H 03/22/22 10:24 Lymph # (Auto) 1.10 K/uL (1.2-3.4) L 03/22/22 10:24 Hand # (Auto) 1.35 K/uL (0.24-0.82) H 03/22/22 10:24 Eos # (Auto) 0.21 K/uL (0-0.50) 03/22/22 10:24 Baso # (Auto) 0.05 K/uL (0-0.2) 03/22/22 10:24 Immature Gran # (Auto) 0.08 K/uL (0.00-0.02) H 03/22/22 10:24 PT 10.5 Seconds (9.0-12.0) 03/22/22 10:24 INR 1.0 (0.9-1.1) 03/22/22 10:24 APTT 28.8 Seconds (21.0-31.0) 03/22/22 10: PTT Ratio 1.0 03/22/22 10:24 Sodium 137 mmol/L (136-145) 03/22/22 10:24 Potassium 3.7 mmol/L (3.5-5.1) 03/22/22 10:24 Chloride 107 mmol/L (98-107) 03/22/22 10:24 Carbon Dioxide 19 mmol/L (21-32) L 03/22/22 10:24 Anion Gap 11 (3-11) 03/22/22 10:24 BUN 23 mg/dl (6-23) 03/22/22 10:24 Creatinine 2.47 mg/dl (0.6-1.4) H 03/22/22 10:24 Est Cr Clr Drug Dosing 35.3 ml/min 03/22/22 10:24 Est GFR ( Amer) 33.0 ml/min 03/22/22 10:24 Est GFR (Non-Af Amer) 28.5 ml/min 03/22/22 10:24 BUN/Creatinine Ratio 9.3 (10-20) L 03/22/22 10:24 Glucose 129 mg/dl (70-99(Fasting)) H 03/22/22 10:24 Lactate 1.8 mmol/L (0.4-2.0) 03/22/22 13:10 Calcium 9.6 mg/dl (8.5-10.1) 03/22/22 10:24 Magnesium 1.9 mg/dl (1.7-2.4) 03/22/22 10:24 Total Bilirubin 0.9 mg/dl (0.2-1.0) 03/22/22 10:24 Direct Bilirubin 0.1 mg/dl (0-0.2) 03/22/22 10:24 AST 21 U/L (13-39) 03/22/22 10:24 ALT 33 U/L (7-52) 03/22/22 10:24 Alkaline Phosphatase 146 U/L (34-104) H 03/22/22 10:24 Troponin I High Sens 9.0 pg/ml (0-20) 03/22/22 10:24 Total Protein 9.0 gm/dl (6.0-8.3) H 03/22/22 10:24 Albumin 4.7 gm/dl (3.4-5.0) 03/22/22 10:24 Lipase 27 U/L (11-82) 03/22/22 10:24 Procalcitonin 3.56 ng/ml (0-0.5) H 03/22/22 10:24 Urine Color Yellow 03/22/22 10:47 Urine Appearance Turbid (Clear) A 03/22/22 10:47 Urine pH 6.5 (4.5-7.5) 03/22/22 10:47 Ur Specific [place] 1.016 (1.000-1.030) 03/22/22 10:47 Urine Protein 3+ (Negative) H 03/22/22 10:47 Urine Glucose (UA) Negative (Negative) 03/22/22 10:47 Urine Ketones Negative (Negative) 03/22/22 10:47 Urine Blood 3+ (Negative) H 03/22/22 10:47 Urine Nitrite Positive (Negative) A 03/22/22 10:47 Urine Bilirubin Negative (Negative) 03/22/22 10:47 Urine Urobilinogen Negative (Negative) 03/22/22 10:47 Ur Leukocyte Esterase 2+ (Negative) H 03/22/22 10:47 Urine WBC (Auto) >30 /hpf (0-5) H 03/22/22 10:47 Urine RBC (Auto) 0-4 /hpf (0-4) 03/22/22 10:47 U Hyaline Cast (Auto) 0 /lpf (0-5) 03/22/22 10:47 U Epithel Cells (Auto) >30 /lpf (0-5) H 03/22/22 10:47 Urine Bacteria (Auto) 4+ (Negative) H 03/22/22 10:47 Stl C. cayetanensis PCR Not Detected (NotDetected) 03/22/22 10:47 Stool Rotavirus A PCR Not Detected (NotDetected) 03/22/22 10:47 Stl Adenov F 40/41 PCR Not Detected (NotDetected) 03/22/22 10:47 Stool Astrovirus (PCR) Not Detected (NotDetected) 03/22/22 10:47 Stool Campylobacter PCR Not Detected (NotDetected) 03/22/22 10:47 Stl C. diff Tox A/B PCR Not Detected (NotDetected) 03/22/22 10:47 Stool Cryptosporidium PCR Not Detected (NotDetected) 03/22/22 10:47 Stl E.coli Shiga Tox PCR Not Detected (NotDetected) 03/22/22 10:47 Stl Enterotoxigenic E PCR Not Detected (NotDetected) 03/22/22 10:47 Stool EPEC (PCR) Not Detected (NotDetected) 03/22/22 10:47 Stool EAEC (PCR) Not Detected (NotDetected) 03/22/22 10:47 Stl E. histolytica PCR Not Detected (NotDetected) 03/22/22 10:47 Stool Giardia Lamblia PCR Not Detected (NotDetected) 03/22/22 10:47 Stool Salmonella PCR Not Detected (NotDetected) 03/22/22 10:47 Stool Sapovirus (PCR) Not Detected (NotDetected) 03/22/22 10:47 Stl P. shigelloides PCR Not Detected (NotDetected) 03/22/22 10:47 Stl Shigella/EIEC PCR Not Detected (NotDetected) 03/22/22 10:47 St Y.enterocolitica PCR Not Detected (NotDetected) 03/22/22 10:47 Stool Vibrio (PCR) Not Detected (NotDetected) 03/22/22 10:47 Stl Vibrio cholerae PCR Not Detected (NotDetected) 03/22/22 10:47 Stl Norovirus GI/GII PCR DETECTED (NotDetected) A* 03/22/22 10:47 SARS-CoV-2 (PCR) NEGATIVE (Negative) 03/22/22 10:42 Influenza Type A (PCR) Negative (Neg) 03/22/22 10:42 Influenza Type B (PCR) Negative (Neg) 03/22/22 10:42 RSV (RT-PCR) Negative (Neg) 03/22/22 10:42 Impressions Chest X-Ray 03/22/22 10:06 XR chest 1V portable CLINICAL HISTORY: Sepsis. COMPARISON STUDY: No previous studies for comparison. FINDINGS: Lung volumes are normal. There is a 1.2 cm nodular density lateral to the left hilum. There is no pneumothorax or pleural effusion. Cardiac size is normal. Mediastinal contours are normal. There is no evidence for pulmonary edema. IMPRESSION: 1.2 cm nodular density lateral to left hilum. This likely represents a pulmonary vessel. However, a nonemergent chest CT is recommended to exclude a pulmonary nodule. ACT 112: Negative or not required by law. Electronically signed by: Joshua Fu M.D. 03/22/2022 10:41 AM PG Care Time/CCT Total # of Minutes Spent Total Time Spent with Patient: Total time spent is greater than 50% in coordination of care (as documented) at patient's floor/unit and/or counseling patient: Coding Level of Care Code 46167 Inpt Consult Level 5 Diagnoses Acute kidney injury N17.9 Chronic kidney disease with active medical management without dialysis, stage 3 (moderate) N18.30 HIV disease B20 Neurogenic bladder N31.9 Norovirus A08.11
--- NOTE | 2022-03-22 17:26 | Ultrasound Report ---
RENAL ULTRASOUND CLINICAL HISTORY: josé miguel with ckd has neobladder COMPARISON STUDY: CT of the abdomen and pelvis October 17, 2018. Renal ultrasound September 02, 2021. TECHNIQUE: Sonography of the kidneys was performed. FINDINGS: The right kidney measures 9.6 cm in maximal dimension and the left measures 9.8 cm. There i s no hydronephrosis. Moderate right and mild left renal cortical thinning is noted. This is unchanged . Right abdominal neobladder is again noted. This contains debris. IMPRESSION: 1. No hydronephrosis. 2. Nonspecific debris within the right abdominal neobladder. ACT 112: Negative or not required by law. Electronically signed by: Joshua Fu M.D. 03/22/2022 5:24 PM
[2022-03-22] MEDS: BIKTARVY PO SCH (21:33)
[2022-03-22] MEDS: carvediloL 25 MG TAB PO SCH (21:34)
[2022-03-22] MEDS: VALSARTAN/SACUBITRIL 51/49 MG TAB PO SCH (21:35)
[2022-03-23] MEDS: HEPARIN SOD 5,000 UNIT/0.5 ML VIAL SQ SCH ×3 (00:40→21:48)
[2022-03-23 07:04] LABS: Hematocrit (blood only) 35.8 % (40.1-51.0); Hemoglobin 12.7 g/dl (14.0-18.0); Mean Corpuscular Hgb Conc 35.5 g/dL (32.0-36.0); Mean Corpuscular Volume 95.7 fL (80.0-100.0); Mean Platelet Volume 8.7 fL (9.4-12.4); Platelet Count 146 K/uL (130-400); RDW Coefficient of Variation 14.2 % (11.5-14.5); RDW Standard Deviation 49.1 fL (36.4-46.3); Red Blood Count 3.74 M/uL (4.63-6.08)
[2022-03-23 07:10] LABS: BUN Creatinine Ratio 8.1 (10-20); Creatinine Clr Calc Pharmacy 41.3 ml/min; Est GFR (African American) 39.9 ml/min; Est GFR (Non-African American) 34.4 ml/min; Potassium 3.1 mmol/L (3.5-5.1)
[2022-03-23] MEDS ORDERED: POTASSIUM CHLORIDE CRTAB 20 MEQ TABCR PO STA (08:53)
[2022-03-23] MEDS ORDERED: BICTEGRAV EMTRICIT TENOFOV ALA PO SCH (09:00)
--- NOTE | 2022-03-23 09:11 | Nephrology Progress Note ---
Date of Service March 23, 2022 Assessment & Plan (1) Acute kidney injury: Plan: * Nonoliguric LIT due to dehydration in the setting of ARB therapy. Cr improved from 2.47 to 2.11 overnight following IV hydration * IVF has been stopped. Encourage oral hydration * Monitor PRP * Continue Entresto. Kidney function is improving w/ hydration * 03/22/22 renal US: R 9.6 cm, L 9.8 cm. Moderate bilateral cortical thinning. No hydronephrosis (2) Chronic kidney disease with active medical management without dialysis, stage 3 (moderate): Plan: * CKD stage G3b/A3 (moderate impairment). Baseline Cr 1.8 w/ EGFR 40 cc/min. 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 UPCR ~ 0.9. 09/17 renal US revealed mild asymmetry suggestive of microvascular disease (3) HIV disease: Plan: * On antiviral therapy as per Dr. Velez. 03/19 HIV RNA PCR - negative (4) Neurogenic bladder: Plan: * Performs CIC * Preliminary urine culture with > 100K gram negative bacilli. Await ID & sensitivities. Remains on IV Ceftriaxone (5) Norovirus: Plan: * Stool PCR + for norovirus * Continue supportive care Admission and Anticipated Discharge Date Admission Date: March 22, 2022 Subjective Mr. Adame was evaluated in his hospital room this morning. He reports that he is now tolerating a liquid diet but still has frequent diarrhea. He denies fever or abdomial pain Review of Systems Constitutional: no fever Eyes: no problem reported Ear, Nose, Mouth, Throat: no problem reported Respiratory: no cough and no dyspnea Cardiovascular: no chest pain Gastrointestinal: + diarrhea/loose stools; no abdominal pain, no nausea and no vomiting Physical Exam Constitutional: + ill appearing; not in distress Eyes: PERRL, conjunctivae normal, anicteric sclerae ENMT: external ear and nose normal, oropharynx normal Neck: trachea midline, no thyromegaly Respiratory: normal respiratory effort, lungs clear to auscultation Cardiovascular: RRR, no murmur, no edema Gastrointestinal (Abdomen): normal bowel sounds, soft, nontender, no hepatosplenomegaly Skin: no rashes, warm and dry Neurologic: awake; not confused Results & Data ([facility]) Vital Signs (Past 12 Hours) Vital Signs Temp Pulse Resp BP Pulse Ox O2 Del Method 03/23/22 08:51 36.7 C 85 18 116/78 99 Room Air Laboratory Results Laboratory Tests 03/23/22 03/23/22 05:27 05:27 WBC 8.50 Hgb 12.7 L D Hct 35.8 L Plt Count 146 Sodium 136 Potassium 3.1 L Chloride 110 H Carbon Dioxide 19 L Creatinine 2.11 H D Calcium 8.0 L Diagnostic Findings 03/22/22 renal US: R 9.6 cm, L 9.8 cm. Moderate bilateral cortical thinning. No hydronephrosis PG Care Time/CCT Total # of Minutes Spent Total Time Spent with Patient: Total time spent is greater than 50% in coordination of care (as documented) at patient's floor/unit and/or counseling patient: Coding Level of Care Code 55886 Subseq Hosp Care Lvl 3 Diagnoses Acute kidney injury N17.9 Chronic kidney disease with active medical management without dialysis, stage 3 (moderate) N18.30 HIV disease B20 Neurogenic bladder N31.9 Norovirus A08.11
[2022-03-23] MEDS: carvediloL 25 MG TAB PO SCH ×2 (09:16→21:48)
[2022-03-23] MEDS: ASPIRIN 81 MG ECTAB PO SCH (09:16)
[2022-03-23] MEDS: ROSUVASTATIN CALCIUM 5 MG TAB PO SCH (09:17)
[2022-03-23] MEDS: DICYCLOMINE HCL 10 MG CAP PO SCH ×3 (09:17→21:48)
[2022-03-23] MEDS: CHOLECALCIFEROL 1,000 UNITS 25 MCG TAB PO SCH (09:17)
[2022-03-23] MEDS: VALSARTAN/SACUBITRIL 51/49 MG TAB PO SCH ×2 (09:17→21:48)
--- NOTE | 2022-03-23 12:38 | Hospitalist Progress Note ---
Date of Service March 23, 2022 Assessment & Plan (1) Nausea and vomiting: Plan: - Patient presented with nausea vomiting inability to keep down medications. - Does have a h/o diarrhea listed as one of his medical problems but not this frequent with associated n/v - Stool biofire positive for Norovirus which is the likely culprit of his symptoms - N/V has resolved, tolerating clears, will advance diet (2) Acute UTI: Plan: - He has an abnormal urinalysis with a history of urinary tract infections stool studies are pending. - Prelim urine cultures positive for GNB - Empirically remains on ceftriaxone and cultures are pending - Will tailor abx therapy accordingly based on final culture results but would treat him for minimum of 7 days given his immunocompromised status (3) HIV disease: Plan: - Patient typically sees Dr. Velez for his HIV. 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 Velez (4) CKD (chronic kidney disease) stage 3, GFR 30-59 ml/min: Plan: - Acute kidney injury with history of chronic kidney disease. Likely from prerenal ATN - patient typically follows with Dr. Chavis his creatinine typically is around 1.8-2.0 (presently not far from baseline) - Renal US obtained to r/o hydronephrosis which was normal (did note debris in right abdominal neobladder) - Dr. Chavis consulted, appreciate input, fluids stopped (5) Chronic HFrEF (heart failure with reduced ejection fraction): Plan: - Has a history of cardiomyopathy - most recent echocardiogram showed preserved ejection fraction - patient is on carvedilol, Entresto, and rosuvastatin (all of which has been continued) - Additionally for his cholesterol and he is on alirocumab(Praluent) and icosapent (Vascepa) (6) Neurogenic bladder: Plan: Reportedly had a neobladder per notes from Dr. Landry in 2017, patient self straight caths 4 times a day and as needed Plan DVT prevention is heparin given his renal function he is a full code Continue interventions as outlined above Advance diet D/c planning - possibly as early as tomorrow based on clinical status Plan d/w Dr. Caio Stephens. Admission and Anticipated Discharge Date Admission Date: March 22, 2022 Subjective Patient seen on daily rounds this morning. He is resting comfortably in bed and offers no complaints or concerns. Continues to have diarrhea, had 3 loose BMs this AM since he woke up. No abd pain, n/v. Tolerating clears. No fever or chills. Denies cp or dyspnea. Review of Systems Review of Systems: All systems reviewed and are unremarkable except as noted in HPI and below. Denies fever, chills, fatigue, headache, nasal congestion, sore throat, cough, chest pain, shortness of breath, palpitations, orthopnea, PND, abdominal pain, n/v, constipation, dysuria, hematuria, frequency, back pain, joint pain or swelling, easy bruising or bleeding, skin lesions or rashes. Physical Exam Physical Exam: GENERAL: 56 yo Well-developed, well-nourished WM. NAD. LUNGS: Clear to auscultation bilaterally. No W/R/R. CARDIOVASCULAR: Regular rate and rhythm. ABDOMEN: Soft, non-tender and non-distended. BS normoactive x 4 quad. EXTREMITIES: No edema. Non-tender. Peripheral pulses +2/4. NEUROLOGIC: A&O x3. PSYCHIATRIC: Cooperative. Appropriate mood and affect. SKIN: Warm, dry, intact. No rashes or lesions. Results & Data Results & Data ([facility]) Vital Signs (Past 12 Hours) Vital Signs Temp Pulse Resp BP Pulse Ox O2 Del Method 03/23/22 09:00 Room Air 03/23/22 08:51 36.7 C 85 18 116/78 99 Room Air Laboratory Results 03/23/22 05:27 03/23/22 05:27 PG Care Time/CCT Total # of Minutes Spent Total Time Spent with Patient: Total time spent is greater than 50% in coordination of care (as documented) at patient's floor/unit and/or counseling patient: Coding Level of Care Code 19927 Subseq Hosp Care Lvl 2 Diagnoses Nausea and vomiting R11.2 Acute UTI N39.0 HIV disease B20 CKD (chronic kidney disease) stage 3, GFR 30-59 ml/min N18.30 Chronic HFrEF (heart failure with reduced ejection fraction) I50.22 Neurogenic bladder N31.9
[2022-03-23] MEDS: cefTRIAXone SODIUM 2,000 MG in DEXTROSE 5% 50 ML IV SCH (13:27)
[2022-03-23] MEDS: BIKTARVY PO SCH (17:38)
[2022-03-23] MEDS: ONDANSETRON INJ 2 MG/ML 2 ML VIAL IV PRN (18:10)
[2022-03-23] MEDS: ACETAMINOPHEN 325 MG TAB PO PRN (21:48)
--- NOTE | 2022-03-23 23:22 | Electrocardiogram Report ---
Test Reason : Blood Pressure : / mmHG Vent. Rate : 105 BPM Atrial Rate : 105 BPM P-R Int : 188 ms QRS Dur : 084 ms QT Int : 342 ms P-R-T Axes : 034 056 063 degrees QTc Int : 452 ms Sinus tachycardia Nonspecific T wave abnormality Abnormal ECG No previous ECGs available Confirmed by Tank Pierre [id number] on 03/23/2022 11:22:02 PM Referred By: Ruth Butler Confirmed By:Tank Pierre
[2022-03-24] MEDS: VASCEPA 1 GM PO SCH ×3 (00:28→22:23)
[2022-03-24 06:28] LABS: Hemoglobin 12.4 g/dl (14.0-18.0); Mean Corpuscular Hemoglobin 33.7 pg (25.0-34.0); Mean Corpuscular Hgb Conc 35.4 g/dL (32.0-36.0); Mean Corpuscular Volume 95.1 fL (80.0-100.0); Mean Platelet Volume 8.8 fL (9.4-12.4); Platelet Count 145 K/uL (130-400); RDW Coefficient of Variation 14.2 % (11.5-14.5); RDW Standard Deviation 49.1 fL (36.4-46.3); Red Blood Count 3.68 M/uL (4.63-6.08); White Blood Count 6.83 K/ul (4.8-10.8)
[2022-03-24 07:04] LABS: BUN Creatinine Ratio 10.2 (10-20); Calcium 8.2 mg/dl (8.5-10.1); Creatinine Clr Calc Pharmacy 40.4 ml/min; Est GFR (African American) 38.8 ml/min; Est GFR (Non-African American) 33.5 ml/min; Potassium 3.5 mmol/L (3.5-5.1)
[2022-03-24] MEDS: carvediloL 25 MG TAB PO SCH ×2 (08:34→22:22)
[2022-03-24] MEDS: CHOLECALCIFEROL 1,000 UNITS 25 MCG TAB PO SCH (08:34)
[2022-03-24] MEDS: VALSARTAN/SACUBITRIL 51/49 MG TAB PO SCH ×2 (08:34→22:23)
[2022-03-24] MEDS: ROSUVASTATIN CALCIUM 5 MG TAB PO SCH (08:34)
[2022-03-24] MEDS: HEPARIN SOD 5,000 UNIT/0.5 ML VIAL SQ SCH ×2 (08:34→22:24)
[2022-03-24] MEDS: DICYCLOMINE HCL 10 MG CAP PO SCH ×3 (08:34→22:23)
[2022-03-24] MEDS: ASPIRIN 81 MG ECTAB PO SCH (08:34)
--- NOTE | 2022-03-24 09:10 | Nephrology Progress Note ---
Date of Service March 24, 2022 Assessment & Plan (1) Acute kidney injury: Plan: * Nonoliguric LIT due to dehydration in the setting of ARB therapy. Cr improved from 2.47 to 2.11 overnight following IV hydration * Renal recovery has stalled. Patient has continued diarrhea and appears volume contracted * Will administer NaHCO3 infusion for intravascular repletion and correction of metabolic acidosis * Continue Entresto, monitor kidney function * 03/22/22 renal US: R 9.6 cm, L 9.8 cm. Moderate bilateral cortical thinning. No hydronephrosis (2) Chronic kidney disease with active medical management without dialysis, stage 3 (moderate): Plan: * CKD stage G3b/A3 (moderate impairment). Baseline Cr 1.8 w/ EGFR 40 cc/min. 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 UPCR ~ 0.9. 09/17 renal US revealed mild asymmetry suggestive of microvascular disease (3) HIV disease: Plan: * On antiviral therapy as per Dr. Velez. 03/19 HIV RNA PCR - negative (4) Neurogenic bladder: Plan: * Performs CIC * Preliminary urine culture with > 100K gram negative bacilli. Culture + for pansensitive E. Coli. Remains on IV Ceftriaxone (5) Norovirus: Plan: * Stool PCR + for norovirus * Continue supportive care Admission and Anticipated Discharge Date Admission Date: March 22, 2022 Subjective Mr. Adame was evaluated in his hospital room this morning. He reports 11 liquid BM yesterday. This morning he is nauseated but was able to keep down breakfast Review of Systems Constitutional: no fever Eyes: no problem reported Ear, Nose, Mouth, Throat: no problem reported Respiratory: no cough and no dyspnea Cardiovascular: no chest pain Gastrointestinal: + diarrhea/loose stools; no abdominal pain, no nausea and no vomiting Physical Exam Constitutional: + ill appearing; not in distress Eyes: PERRL, conjunctivae normal, anicteric sclerae ENMT: external ear and nose normal, oropharynx normal Neck: trachea midline, no thyromegaly Respiratory: normal respiratory effort, lungs clear to auscultation Cardiovascular: RRR, no murmur, no edema Gastrointestinal (Abdomen): normal bowel sounds, soft, nontender, no hepatosplenomegaly Skin: no rashes, warm and dry Neurologic: awake; not confused Results & Data ([facility]) Vital Signs (Past 12 Hours) Vital Signs Temp Pulse Resp BP Pulse Ox O2 Del Method 03/24/22 08:46 Room Air 03/24/22 07:17 36.7 C 67 18 117/72 97 Room Air Laboratory Results Laboratory Tests 03/24/22 03/24/22 05:29 05:29 WBC 6.83 Hgb 12.4 L Hct 35.0 L Plt Count 145 Sodium 137 Potassium 3.5 Chloride 111 H Carbon Dioxide 20 L BUN 22 Creatinine 2.16 H Calcium 8.2 L PG Care Time/CCT Total # of Minutes Spent Total Time Spent with Patient: Total time spent is greater than 50% in coordination of care (as documented) at patient's floor/unit and/or counseling patient: Coding Level of Care Code 20509 Subseq Hosp Care Lvl 3 Diagnoses Acute kidney injury N17.9 Chronic kidney disease with active medical management without dialysis, stage 3 (moderate) N18.30 HIV disease B20 Neurogenic bladder N31.9 Norovirus A08.11
--- NOTE | 2022-03-24 10:32 | Hospitalist Progress Note ---
Date of Service March 24, 2022 Assessment & Plan (1) Nausea and vomiting: Plan: Attending: Dr. Alvarado - Patient presented with nausea vomiting inability to keep down medications. He is doing much better at this time. - Does have a h/o diarrhea listed as one of his medical problems but not this frequent with associated n/v - Stool biofire positive for Norovirus which is the likely culprit of his symptoms - N/V has resolved, tolerating clears, will advance diet as tolerated (2) Acute UTI: Plan: - He has an abnormal urinalysis with a history of urinary tract infections stool studies are pending. - Prelim urine cultures positive for pansensitive E. coli -Patient currently being treated with ceftriaxone. Due to moreno sensitivity, can convert to oral antibiotics when patient tolerating oral intake - Treat for minimum of 7 days given his immunocompromised status (3) HIV disease: Plan: - Patient typically sees Dr. Velez for his HIV. 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 Velez (4) CKD (chronic kidney disease) stage 3, GFR 30-59 ml/min: Plan: - Acute kidney injury with history of chronic kidney disease. Likely from prerenal ATN - patient typically follows with Dr. Chavis his creatinine typically is around 1.8-2.0 (presently not far from baseline) - Renal US obtained to r/o hydronephrosis which was normal (did note debris in right abdominal neobladder) - Dr. Chavis consulted, appreciate input, fluids per nephrology (5) Chronic HFrEF (heart failure with reduced ejection fraction): Plan: - Has a history of cardiomyopathy - most recent echocardiogram showed preserved ejection fraction - patient is on carvedilol, Entresto, and rosuvastatin (all of which has been continued) - Additionally for his cholesterol and he is on alirocumab(Praluent) and icosapent (Vascepa) (6) Neurogenic bladder: Plan: Reportedly had a neobladder per notes from Dr. Landry in 2017, patient self straight caths 4 times a day and as needed Urine output is improved today. Continue to monitor strict ins and outs Plan DVT prevention is heparin given his renal function Advance diet as tolerated D/c planning -anticipate discharge home Admission and Anticipated Discharge Date Admission Date: March 22, 2022 Subjective Attending: Dr. Alvarado Admitted 03/22/2022 for n/v with elevated procalcitonin and lactic acid. Found to be positive for Norovirus and LIT. Has received IV hydration at the direction of nephrology. Patient with Hx of HIV and follows with Dr. Velez. Patient now continuing with multiple episodes of diarrhea which was noted as one of his problems in an infectious disease note from 2020. Review of chest x-ray does show the patient has a 1.2 cm hilar nodule. There is not a CT scan of the chest or chest x-ray to compare from prior. Patient is a lifelong non-smoker. Patient is seen and examined in room 387 today. He is having good urine output. He is straight cath himself several times a day. He has no complaints of fever. No abdominal pain. He has no new complaints. Review of Systems Review of Systems: A total of 10 systems was reviewed and is negative other than as listed in the HPI Physical Exam Physical Exam: GENERAL : No acute distress EYES: No icterus, gaze conjugate NOSE: No evidence of epistaxis MOUTH: No lesions or candidiasis NECK: Supple LUNGS: CTA B/L, no wheezes, rales or rhonchi HEART: Regular, rate controlled ABDOMEN: Soft, NT, ND, BS Present EXTREMITIES: No LE edema, pedal pulses intact NEURO: A&OX3 Results & Data Results & Data ([facility]) Vital Signs (Past 12 Hours) Vital Signs Temp Pulse Resp BP Pulse Ox O2 Del Method 03/24/22 08:46 Room Air 03/24/22 07:17 36.7 C 67 18 117/72 97 Room Air Critical Care Results & Data Vital Signs (Past 12 Hours) Vital Signs Temp Pulse Resp BP Pulse Ox O2 Del Method 03/24/22 08:46 Room Air 03/24/22 07:17 36.7 C 67 18 117/72 97 Room Air Lab & Micro Results (Past 24 Hours) RBC 3.68 M/uL (4.63-6.08) L 03/24/22 WBC 6.83 K/ul (4.8-10.8) 03/24/22 Hgb 12.4 g/dl (14.0-18.0) L 03/24/22 Hct 35.0 % (40.1-51.0) L 03/24/22 MCV 95.1 fL (80.0-100.0) 03/24/22 MCH 33.7 pg (25.0-34.0) 03/24/22 MCHC 35.4 g/dL (32.0-36.0) 03/24/22 RDW Standard Deviation 49.1 fL (36.4-46.3) H 03/24/22 RDW Coefficient of Variation 14.2 % (11.5-14.5) 03/24/22 Plt Count 145 K/uL (130-400) 03/24/22 MPV 8.8 fL (9.4-12.4) L 03/24/22 Na 137 mmol/L (136-145) 03/24/22 K 3.5 mmol/L (3.5-5.1) 03/24/22 Cl 111 mmol/L (98-107) H 03/24/22 CO2 20 mmol/L (21-32) L 03/24/22 Anion Gap 6 (3-11) 03/24/22 BUN 22 mg/dl (6-23) 03/24/22 Creatinine 2.16 mg/dl (0.6-1.4) H 03/24/22 Estimated GFR ( Amer) 38.8 ml/min 03/24/22 Estimated GFR (Non-Af Amer) 33.5 ml/min 03/24/22 BUN/Creatinine Ratio 10.2 (10-20) 03/24/22 Glu 78 mg/dl (70-99(Fasting)) 03/24/22 Ca 8.2 mg/dl (8.5-10.1) L 03/24/22 Calcium Level 8.2 mg/dl (8.5-10.1) L 03/24/22 05:29 Microbiology 03/22/22 10:47 Urine Culture - Final Urine,Clean Catch Escherichia coli 03/22/22 10:40 Aerobic Blood Culture - Preliminary Blood No growth in Aerobic bottle after 24 hours. Anaerobic Blood Culture - Preliminary No growth in Anaerobic bottle after 24 hours. 03/22/22 10:36 Aerobic Blood Culture - Preliminary Blood No growth in Aerobic bottle after 24 hours. Anaerobic Blood Culture - Preliminary No growth in Anaerobic bottle after 24 hours. I & O Totals 24 Hours 03/23/22 03/24/22 03/25/22 06:59 06:59 06:59 Intake Total 3579.45 / 3579.45 70 / 70 Output Total 2175 / 2175 1100 / 1100 Balance 1404.45 / 1404.45 -1030 / -1030 Cumulative 03/22/22 09:47 thru 03/24/22 06:29 Intake Total 3649.45 Output Total 3275 Balance 374.45 RT Ventilator Mngmt (Last Documented) Ventilator Ordered Settings Respiratory Rate 18 03/24/22 07:17 Ventilator - PT Measurements Respiratory Rate 18 PG Care Time/CCT Total # of Minutes Spent Total Time Spent with Patient: Total time spent is greater than 50% in coordination of care (as documented) at patient's floor/unit and/or counseling patient: Coding Level of Care Code 96741 Subseq Hosp Care Lvl 2 Diagnoses Nausea and vomiting R11.2 Acute UTI N39.0 HIV disease B20 CKD (chronic kidney disease) stage 3, GFR 30-59 ml/min N18.30 Chronic HFrEF (heart failure with reduced ejection fraction) I50.22 Neurogenic bladder N31.9
[2022-03-24] MEDS: SODIUM BICARBONATE 8.4% 150 MEQ in WATER, STERILE 1,000 ML IV SCH ×2 (11:03→11:10)
[2022-03-24] MEDS: cefTRIAXone SODIUM 2,000 MG in DEXTROSE 5% 50 ML IV SCH (12:33)
[2022-03-24] MEDS: BIKTARVY PO SCH (17:46)
[2022-03-24] MEDS: ACETAMINOPHEN 325 MG TAB PO PRN (22:25)
[2022-03-25] MEDS: ACETAMINOPHEN 325 MG TAB PO PRN (06:30)
[2022-03-25 06:49] LABS: Hematocrit (blood only) 35.9 % (40.1-51.0); Hemoglobin 13.1 g/dl (14.0-18.0); Mean Corpuscular Hemoglobin 33.9 pg (25.0-34.0); Mean Corpuscular Hgb Conc 36.5 g/dL (32.0-36.0); Mean Platelet Volume 8.6 fL (9.4-12.4); Platelet Count 153 K/uL (130-400); RDW Coefficient of Variation 13.7 % (11.5-14.5); RDW Standard Deviation 46.7 fL (36.4-46.3); Red Blood Count 3.86 M/uL (4.63-6.08); White Blood Count 6.47 K/ul (4.8-10.8)
[2022-03-25 07:11] LABS: BUN Creatinine Ratio 10.7 (10-20); Calcium 8.5 mg/dl (8.5-10.1); Creatinine Clr Calc Pharmacy 40.6 ml/min; Est GFR (Non-African American) 33.7 ml/min; Potassium 3.2 mmol/L (3.5-5.1)
[2022-03-25] MEDS ORDERED: traMADol HCL 50 MG TABLET PO STA (08:13)
[2022-03-25] MEDS: ROSUVASTATIN CALCIUM 5 MG TAB PO SCH (08:26)
[2022-03-25] MEDS: VALSARTAN/SACUBITRIL 51/49 MG TAB PO SCH (08:26)
[2022-03-25] MEDS: ASPIRIN 81 MG ECTAB PO SCH (08:26)
[2022-03-25] MEDS: carvediloL 25 MG TAB PO SCH (08:26)
[2022-03-25] MEDS: CHOLECALCIFEROL 1,000 UNITS 25 MCG TAB PO SCH (08:26)
[2022-03-25] MEDS: HEPARIN SOD 5,000 UNIT/0.5 ML VIAL SQ SCH (08:26)
[2022-03-25] MEDS: DICYCLOMINE HCL 10 MG CAP PO SCH ×2 (08:26→15:09)
[2022-03-25] MEDS: VASCEPA 1 GM PO SCH (08:27)
[2022-03-25] MEDS ORDERED: POTASSIUM CHLORIDE CRTAB 20 MEQ TABCR PO STA (08:46)
--- NOTE | 2022-03-25 09:01 | Nephrology Progress Note ---
Date of Service March 25, 2022 Assessment & Plan (1) Acute kidney injury: Plan: * Nonoliguric ILT due to dehydration in the setting of ARB therapy. Cr improved from 2.47 to 2.11 overnight following IV hydration * Renal recovery has stalled. Patient has continued diarrhea and appears volume contracted * Will administer 0.9NS at 80 cc/hr x 24 hours * Hold Entresto, monitor kidney function * 03/22/22 renal US: R 9.6 cm, L 9.8 cm. Moderate bilateral cortical thinning. No hydronephrosis (2) Chronic kidney disease with active medical management without dialysis, stage 3 (moderate): Plan: * CKD stage G3b/A3 (moderate impairment). Baseline Cr 1.8 w/ EGFR 40 cc/min. 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 UPCR ~ 0.9. 09/17 renal US revealed mild asymmetry suggestive of microvascular disease (3) HIV disease: Plan: * On antiviral therapy as per Dr. Velez. 03/19 HIV RNA PCR - negative (4) Neurogenic bladder: Plan: * Performs CIC * Preliminary urine culture with > 100K gram negative bacilli. Culture + for pansensitive E. Coli. Remains on IV Ceftriaxone (5) Norovirus: Plan: * Stool PCR + for norovirus * Continue supportive care Admission and Anticipated Discharge Date Admission Date: March 22, 2022 Subjective Mr. Adame was evaluated in his hospital room this morning. He reports 13 liquid BM yesterday. His nausea is subjectively improved Review of Systems Constitutional: no fever Eyes: no problem reported Ear, Nose, Mouth, Throat: no problem reported Respiratory: no cough and no dyspnea Cardiovascular: no chest pain Gastrointestinal: + diarrhea/loose stools; no abdominal pain, no nausea and no vomiting Physical Exam Constitutional: + ill appearing; not in distress Eyes: PERRL, conjunctivae normal, anicteric sclerae ENMT: external ear and nose normal, oropharynx normal Neck: trachea midline, no thyromegaly Respiratory: normal respiratory effort, lungs clear to auscultation Cardiovascular: RRR, no murmur, no edema Gastrointestinal (Abdomen): normal bowel sounds, soft, nontender, no hepatosplenomegaly Skin: no rashes, warm and dry Neurologic: awake; not confused Results & Data ([facility]) Vital Signs (Past 12 Hours) Vital Signs Temp Pulse Resp BP BP Pulse Ox O2 Del Method 03/25/22 07:22 36.3 C L 65 18 106/73 98 Room Air 03/24/22 22:21 36.6 C 67 16 130/85 98 Room Air 03/24/22 21:30 36.6 C 68 17 117/78 98 Room Air Laboratory Results Laboratory Tests 03/25/22 03/25/22 05:59 05:59 WBC 6.47 Hgb 13.1 L Hct 35.9 L Plt Count 153 Sodium 138 Potassium 3.2 L Chloride 105 Carbon Dioxide 27 BUN 23 Creatinine 2.15 H Glucose 88 Calcium 8.5 PG Care Time/CCT Total # of Minutes Spent Total Time Spent with Patient: Total time spent is greater than 50% in coordination of care (as documented) at patient's floor/unit and/or counseling patient: Coding Level of Care Code 20542 Subseq Hosp Care Lvl 3 Diagnoses Acute kidney injury N17.9 Chronic kidney disease with active medical management without dialysis, stage 3 (moderate) N18.30 HIV disease B20 Neurogenic bladder N31.9 Norovirus A08.11
[2022-03-25] MEDS ORDERED: SODIUM CHLORIDE 0.9% 1000ML 1,000 ML IV SCH (10:45)
[2022-03-25] MEDS: cefTRIAXone SODIUM 2,000 MG in DEXTROSE 5% 50 ML IV SCH (11:57)
--- NOTE | 2022-03-25 11:57 | Discharge Summary ---
Date of Service March 25, 2022 Admission HPI Per Admitting Provider 56-year-old male with a history of HIV on chronic therapy with recently intact CD4 counts who presents with 4 days prehospital nausea vomiting and diarrhea. No significant description of melena or hematochezia or coffee-ground emesis. Does have a history of chronic diarrhea in the past. Remains on Bentyl and [place] mucil as offered by Dr. Vaz he denies ill contacts Emergency department he has evidence of endorgan distress with acute kidney injury elevated lactic acid elevated procalcitonin abnormal urine analysis pending stool evaluation. He was given volume resuscitation cautiously with his history of cardiomyopathy of the last ejection fraction showed preserved EF Principal Diagnosis 1. N/V/D secondary to norovirus 2. E. coli UTI Discharge Exam GENERAL: 56 yo Well-developed, well-nourished WM. NAD. LUNGS: Clear to auscultation bilaterally. No W/R/R. CARDIOVASCULAR: Regular rate and rhythm. ABDOMEN: Soft, non-tender and non-distended. BS normoactive x 4 quad. EXTREMITIES: No edema. Non-tender. Peripheral pulses +2/4. NEUROLOGIC: A&O x3. PSYCHIATRIC: Cooperative. Appropriate mood and affect. SKIN: Warm, dry, intact. No rashes or lesions. Discharge Data Allergies Allergy/AdvReac Type Severity Reaction Status Date / Time No Known Drug Allergies Allergy Verified 03/14/22 13:03 Consultations 03/22/22 11:34 ED Decision to Admit Stat 03/22/22 14:50 Consult Nephrology Routine Ordered Studies 03/25/22 05:59 03/25/22 05:59 Chest X-Ray 03/22/22 10:06 XR chest 1V portable CLINICAL HISTORY: Sepsis. COMPARISON STUDY: No previous studies for comparison. FINDINGS: Lung volumes are normal. There is a 1.2 cm nodular density lateral to the left hilum. There is no pneumothorax or pleural effusion. Cardiac size is normal. Mediastinal contours are normal. There is no evidence for pulmonary edema. IMPRESSION: 1.2 cm nodular density lateral to left hilum. This likely represents a pulmonary vessel. However, a nonemergent chest CT is recommended to exclude a pulmonary nodule. ACT 112: Negative or not required by law. Electronically signed by: Joshua Fu M.D. 03/22/2022 10:41 AM Renal Ultrasound 03/22/22 14:50 RENAL ULTRASOUND CLINICAL HISTORY: josé miguel with ckd has neobladder COMPARISON STUDY: CT of the abdomen and pelvis October 17, 2018. Renal ultrasound September 02, 2021. TECHNIQUE: Sonography of the kidneys was performed. FINDINGS: The right kidney measures 9.6 cm in maximal dimension and the left measures 9.8 cm. There is no hydronephrosis. Moderate right and mild left renal cortical thinning is noted. This is unchanged. Right abdominal neobladder is again noted. This contains debris. IMPRESSION: 1. No hydronephrosis. 2. Nonspecific debris within the right abdominal neobladder. ACT 112: Negative or not required by law. Electronically signed by: Joshua Fu M.D. 03/22/2022 5:24 PM Name: TYRELL STARR Acct: [id number] Status: ADM IN : 1965 [facility] [place] Date: 03/22/22 Age: 56 Sex: M Dis Date: Loc: Medical/Surgical/Ortho [address] [place] [address]/Bed: [facility] Spec: [id number] Collected: 03/22/22 Received: 03/22/[address]: Tino Joiner MD Source: Urine,Clean Catch OV Order: Ordered: Urine Culture Procedure Result Verified Site Urine Culture Final 03/24/22 Organism 1 Escherichia coli [place] Count >100,000 CFU/ml Sens Sensitivities to Follow E coli RX M.I.C. --- --------- Amox/Clav S <=8/4 Ampicillin S <=8 Amp/Sul S <=8/4 Cefazolin S <=2 Cefepime S <=2 Ceftriaxone S <=1 Ciprofloxacin S <=0.25 Ertapenem S <=0.5 Gentamicin S <=4 Levofloxacin S <=0.5 Meropenem S <=1 Nitrofurantoin S <=32 Tobramycin S <=4 Trimeth/Sulfa S <=2/38 Pip/Tazo S <=16 S = SENSITIVE I = INTERMEDIATE R = RESISTANT Hospital Course (1) Nausea and vomiting: - Patient presented with nausea vomiting inability to keep down medications. - Does have a h/o diarrhea listed as one of his medical problems but not this frequent with associated n/v - Stool biofire positive for Norovirus which is the likely culprit of his symptoms - N/V has resolved, tolerating clears, diet advanced and he is tolerating - Can resume Bentyl prn, would avoid antidiarrheals (2) Acute UTI: - He has an abnormal urinalysis with a history of urinary tract infections stool studies are pending. - Prelim urine cultures positive for GNB - Final urine cx c/w pansensitive e. coli - Complete treatment with Cefdinir 300mg BID x 6 more days (will equal total of 10 days) (3) HIV disease: - Patient typically sees Dr. Velez for his HIV. 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 Velez (4) CKD (chronic kidney disease) stage 3, GFR 30-59 ml/min: - Acute kidney injury with history of chronic kidney disease. Likely from prerenal ATN - patient typically follows with Dr. Chavis his creatinine typically is around 1.8-2.0 (presently not far from baseline) - Renal US obtained to r/o hydronephrosis which was normal (did note debris in right abdominal neobladder) - Dr. Chavis consulted, appreciate input, fluids stopped renal fxn improved and stable - Can repeat labs as outpatient and advise f/u with Dr. Chavis (5) Chronic HFrEF (heart failure with reduced ejection fraction): - Has a history of cardiomyopathy - most recent echocardiogram showed preserved ejection fraction - patient is on carvedilol, Entresto, and rosuvastatin (all of which has been continued) - Additionally for his cholesterol and he is on alirocumab(Praluent) and icosapent (Vascepa) (6) Neurogenic bladder: Reportedly had a neobladder per notes from Dr. Landry in 2017, patient self straight caths 4 times a day and as needed Plan Patient is medically and hemodynamically stable for discharge home today and c omplete course of oral antibiotics for his UTI. He can continue to orally hydrate at home. Follow up with PCP within 1 week. Follow up labs in 1 week and f/u with Dr. Chavis in 1-2 weeks. Plan d/w Dr. Alvarado who has seen and evaluated this patient and agrees with aforementioned. Total Time Total Time Spent Total Time Spent (In Minutes): >30 minutes Discharge Plan Discharge Items Patient Disposition: Home - Self-Care Reason For Visit: UTI, SIRS, INTRACTABLE DIARRHEA Discharge Diagnosis: norovirus (stomach illness) urinary tract infection Activity: Resume your previous activity Non-emergency contact: Primary Care Provider Call non-emergency contact if: you have any medication questions Follow-up/Referrals: Grant Chavis MD [Physician] - 04/06/22 11:15 am (1-2 weeks) Ruth Butler MD [Primary Care Provider] - 04/04/22 11:30 am (APPT WITH JESUS YODER) Diet: Heart Healthy Ambulatory Orders: Basic Metabolic Panel (Routine) Timeframe: 1 Week Location: Determined by Patient Ordered By: Melissa Angeles Attending Provider Instructions: You were hospitalized due to nausea, vomiting, and diarrhea. You were found to be positive for norovirus which is a common gastrointestinal illness that is highly contagious and symptoms generally last about 24 hours. You were also found to have a urinary tract infection secondary to a bacterial called E. coli. The bacteria was sensitive to a variety of antibiotics. Thus far, during your stay, you have received a total of 4 doses of antibiotics. You are not due to start taking the oral antibiotics (called Cefdinir) until 03/26. You will take this medication twice a day (morning and evening) for 6 days until it is completely gone. Do not leave any pills behind. The remainder of your prescribed medications should be resumed. No changes have been made. I would recommend follow up labs in 1 week to recheck your kidneys and results will be sent to Dr. Chavis. We would advise follow up with Dr. Chavis in 1-2 weeks. You should also follow up with your established family doctor within 1 week of discharge. If you have any questions/concerns after you leave the hospital via the nonemergency contact number listed on your paperwork. In the event of a medical emergency, call 911. Pending Studies at Discharge: No Stand-Alone Forms: My [employer], Smoking Cessation Medications and DC Order Prescriptions: New cefdinir 300 mg capsule 300 mg PO BID Qty: 12 0RF Continued cduymlyom-taxevmyd-nygpehf ala 50-200-25 mg tablet 1 tab PO DAILY Qty: 30 5RF aspirin 81 mg tablet,chewable 81 mg PO DAILY Qty: 90 3RF carvedilol 25 mg tablet 25 mg PO BID Qty: 180 3RF Rx Instructions: must administer with a meal/food rosuvastatin 5 mg tablet 5 mg PO DAILY Qty: 90 3RF dicyclomine 10 mg capsule 10 mg PO TID Qty: 90 2RF Praluent Pen 75 mg/mL pen injector 75 mg SQ Q14D Qty: 2 11RF Rx Instructions: inject into abdomen, thigh, or upper arm (deltoid muscle); rotate sites icosapent ethyl [Vascepa] 1 gram capsule 2 g PO BID Qty: 360 3RF Entresto 49-51 mg tablet 1 tab PO BID Qty: 180 3RF cholecalciferol (vitamin D3) 50 mcg (2,000 unit) capsule 50 mcg PO DAILY Qty: 90 3RF medical marijuana inhalation PRN (Reason: Pain) (DME) Powered Wheelchair Misc See Rx Instructions .Route Qty: 1 0RF Rx Instructions: As directed psyllium PO DAILY Discharge Orders: Discharge Order (Routine); Ordered 03/25/22 Ordered By: Melissa Walker/Other Patient Handouts: Preventing Deep Vein Thrombosis Admission Data Admit Date/Time: 03/22/22 12:05 Attending Provider: Duc Alvarado Admit Provider: Jose Simon Primary Care Provider: Ruth Butler Other Providers: Jose Simon ; Grant Chavis Other Interventions: Discharge Summary Assessment (RN) Last Done: 03/25/22 15:53 Supervising Physician Co-Signing Physician Notes I personally examined the patient and verified all wong points of history and exam, discussed case, and agree with decision making with [place] So PAC feels good would like to go home vitals noted nad heent nc at mmm breathing unlabored no accessory muscles good effort norovirus - doing better, safe for home, otherwise as above Coding Level of Care Code D/C DAY MANAGEMENT >30 MINS Diagnoses Nausea and vomiting R11.2 Acute UTI N39.0 HIV disease B20 CKD (chronic kidney disease) stage 3, GFR 30-59 ml/min N18.30 Chronic HFrEF (heart failure with reduced ejection fraction) I50.22 Neurogenic bladder N31.9
[2022-03-25] MEDS: BIKTARVY PO SCH (17:53)
== END 2022-03-25 19:11 | disposition home or self-care (01) | DRG 689 ==
LOC: ED 09:47 → SUATTDRO 12:05 → EDINP 12:05 → 3N 20:18